=== PATIENT | female | born 1985 | race Caucasian/White ===

== ENCOUNTER 2016-10-19 12:05 | Emergency (ER) | payer MEDICAID ==
[~2016-10-19] VITALS: Wt 78.1 kg
--- NOTE | 2016-10-19 12:48 | ERD ---
ER Documentation Chief Complaint Date/Time DATE: 10/19/16 TIME: 12:44 Chief Complaint left knee pain from about 1 month ago. needs mri today. no recent injury HPI This is a 29-year-old female presents to the ER with left knee pain that has been going on for the last month. Patient was doing jumping jacks when she hurt her knee. Patient has been to different ERs and has gone x-ray and CT scan. Patient is requesting an MRI today. Patient states that pain is controlled with pain medication she has been given. Patient denies any new swelling or redness to the area. She denies any numbness or tingling of her extremity. ROS 12 point review of systems was done, all negative except per HPI. Allergies Allergies: Coded Allergies: propoxyphene (Verified Allergy, Intermediate, SOB, RASH, 10/19/16) PMhx/Soc Medical and Surgical Hx: pt denies Medical Hx, pt denies Surgical Hx Hx Alcohol Use: No Hx Substance Use: No Hx Tobacco Use: No Smoking Status: Never smoker Physical Exam Vitals Vital Signs Date Time Temp Pulse Resp B/P Pulse Ox O2 Delivery O2 Flow Rate FiO2 10/19/16 12:09 98.5 98 20 138/88 100 Physical Exam GENERAL: The patient is well developed and appropriate for usual state of health , in no apparent distress. HEENT: Atraumatic. Conjunctivae are pink. Pupils equal, round, and reactive to light. Extraocular muscles are grossly intact. Bilateral tympanic membranes are clear with no evidence of erythema, effusion or dulling of the light reflex. The oropharynx is clear with no erythema or exudates. NECK: C-spine is soft and supple. There is no cervical lymphadenopathy. CHEST: Clear to auscultation bilaterally. There are no rales, wheezes or rhonchi. HEART: Regular rate and rhythm. No murmurs, clicks, rubs or gallops. ABDOMEN: Soft, nontender and nondistended. Good bowel sounds. No rebound or guarding. No gross peritonitis. No gross organomegaly or masses. No Jacome sign or McBurney point tenderness. BACK: No midline or flank tenderness. EXTREMITIES: Left knee: Painful extension and flexion of knee. unable to perform special exams 2/2 pain. no femur pain, no calf pain. NEURO: Alert and oriented. Procedures/MDM This is a 30-year-old female that presents to the ER with left knee pain. Patient may have a meniscus or ligament injury. At this time patient is stable for outpatient follow-up and outpatient MRI. Patient is neurovascularly intact. She is afebrile well-appearing without osteomyelitis, rhabdomyolysis, or compartment syndrome. Patient was given a knee immobilizer she is neurovascularly intact before and after splint application. She already has pain medication at home and does not want any more pain medication. Patient is to follow-up with her primary care doctor or return to ER sooner if symptoms worsen. I gave patient a list of community clinics and an orthopedic referral. Patient understands and agrees with plan Departure Diagnosis: Primary Impression: Knee injury Condition: Stable Patient Instructions: Knee Pain, Meniscus Injury (Possible) Referrals: MOLLY HSU MD [facility] YOU HAVE RECEIVED A MEDICAL SCREENING EXAM AND THE RESULTS INDICATE THAT YOU DO NOT HAVE A CONDITION THAT REQUIRES URGENT TREATMENT IN THE EMERGENCY DEPARTMENT. FURTHER EVALUATION AND TREATMENT OF YOUR CONDITION CAN WAIT UNTIL YOU ARE SEEN IN YOUR DOCTORS OFFICE WITHIN THE NEXT 1-2 DAYS. IT IS YOUR RESPONSIBILITY TO MAKE AN APPOINTMENT FOR FOLOW-UP CARE. IF YOU HAVE A PRIMARY DOCTOR --you should call your primary doctor and schedule an appointment IF YOU DO NOT HAVE A PRIMARY DOCTOR YOU CAN CALL OUR PHYSICIAN REFERRAL HOTLINE AT IF YOU CAN NOT AFFORD TO SEE A PHYSICIAN YOU CAN CHOSE FROM THE FOLLOWING [facility] [address] [facility]. [facility] [address] [facility] [facility] [address] [facility] [facility] [address] [facility]. [facility] [address] [facility]. [facility]. [address] [facility] Hours: Mon-Fri 9:00 AM - 5:00 PM Additional Instructions: Call your primary care doctor TOMORROW for an appointment during the next 1-2 days.See the doctor sooner or return here if your condition worsens before your appointment time. VERONICA LUCIO Oct 19, 2016 12:48
== END 2016-10-19 12:52 | disposition home or self-care (01) ==
LOC: FTE 12:05
DX: S89.92XA Unspecified injury of left lower leg, initial encounter (principal); X50.9XXA Other and unspecified overexertion or strenuous movements or postures, initial encounter; Y92.9 Unspecified place or not applicable

== ENCOUNTER 2017-02-18 07:15 | Day surgery (SDC) | payer BC ==
--- NOTE | 2017-02-17 22:07 | PREOPHP ---
DATE OF ADMISSION: 02/18/2017 HISTORY OF PRESENT ILLNESS: This 31-year-old patient is going to be admitted for diagnostic arthros copy of left knee, partial medial and lateral meniscectomy, possibly repair, plica release, synovect ricardo, application of Joe dressing. This patient has been experiencing knee pain for quite a while. Conservative treatment resulted in limited benefit to the patient. The patient has requested surgical intervention. SOCIAL HISTORY: Nonsmoker, nondrinker. FAMILY HISTORY: Negative. ALLERGIES: DARVOCET. MEDICATIONS: 1. Sulindac. 2. Folic acid. 3. D3. For postop: 1. Ultram. 2. Ibuprofen. 3. Bactrim-DS. REVIEW OF SYSTEMS: Limited to present illness. PHYSICAL EXAMINATION: SKIN: Within normal limits. EARS, NOSE, THROAT: PERRLA. HEAD AND NECK: Normocephalic. Trachea midline. Bilateral symmetrical carotid pulses. No mass, no bruit, no lymphadenopathy. CARDIOVASCULAR: Normal sinus rhythm. S1, S2 normal. No murmur. No JVD. No peripheral edema. LUNGS: Clear. ABDOMEN: Protuberant. No organomegaly. No mass. Bowel sounds present. GENITOURINARY AND RECTAL: Not pertinent to this admission. MUSCULOSKELETAL: Height 4 feet 11 inches, weighing 174 pounds. Head and neck unremarkable. Upper extremities normal with normal neurovascular examination. Spine clear. Right knee shows ____ a few degrees of recurvatum to ____ 25 degrees. Left knee range of motion 0 to 85 degrees. No muscle at rophy. There is tenderness over the patellar tendon. There is tenderness over the medial and later al patellofemoral joint line. There is moderate amount of tenderness over the patellofemoral joint line with positive Isabell test. Vascular examination seems to be intact. MRI report of left knee indicates soft-tissue swelling, tendinitis, torn medial meniscus. DIAGNOSES: 1. Left knee recurvatum. 2. Left knee synovitis. 3. Plica syndrome. 4. Torn meniscus. Treatment plan, alternatives, risks and benefits discussed. The patient understands possibility of complications from surgery such as infection, bleeding, nerve damage, vascular damage, possibility o f deep venous thrombosis, pulmonary embolism, hypersensitivity and even . [place] result may not be obtained depending on actual finding or known or unknown factor or factors. Formal H and P is supposed to be done by PCP of the patient. Dictated By: DONAVON PARRA/JAMES Conf#: [id number] DID#: [id number]
[2017-02-18] VITALS (11 sets, daily range): BP systolic 100–134; BP diastolic 48–89; PULSE 70–92; RESP 10–19; Ht 147.3 cm; Wt 82.4 kg
[~2017-02-18] VITALS: Ht 147.3 cm; Wt 82.4 kg
[~2017-02-18 07:15] MED LIST: CEFAZOLIN 1 GM/50 ML (PMX) 50 ML IVPB ONE
[2017-02-18] MEDS ORDERED: MIDAZOLAM 1 MG/ML 2 ML INJ ONE (08:02)
[2017-02-18] MEDS ORDERED: PROPOFOL 20 ML ONE (08:02)
[2017-02-18] MEDS ORDERED: CEFAZOLIN 1 GM INJ ONE (08:02)
[2017-02-18] MEDS ORDERED: FENTAnyl 50 MCG/ML VIAL ONE (08:02)
[2017-02-18] MEDS ORDERED: CHOL100062 PO (08:40)
[2017-02-18] MEDS ORDERED: IBUP-1542 PO (08:40)
[2017-02-18] MEDS ORDERED: FOLI-49 PO (09:05)
[2017-02-18] MEDS ORDERED: TRAM-40 PO (09:05)
[2017-02-18] MEDS ORDERED: EPINEPHrine 1 MG/ML 30 ML INJ ONE (09:18)
[2017-02-18] MEDS ORDERED: morphine SULFATE/PF (10 MG/10 ML) INJ ONE (09:23)
[2017-02-18] MEDS ORDERED: SODIUM CL BACTERIOSTATIC 30 ML INJ ONE (09:23)
[2017-02-18] MEDS ORDERED: EPINEPHrine 1 MG/ML 30 ML INJ IRR ONE (10:02)
[2017-02-18] MEDS ORDERED: METOCLOPRAMIDE 10 MG INJ ONE (10:14)
[2017-02-18] MEDS ORDERED: DEXAMETHASONE 4 MG/ML 1 ML INJ ONE (10:14)
[2017-02-18] MEDS ORDERED: ONDANSETRON 4 MG INJ ONE (10:14)
[2017-02-18] MEDS ORDERED: KETOROLAC 30 MG INJ ONE (10:14)
[2017-02-18] MEDS ORDERED: morphine SULFATE/PF (10 MG/10 ML) INJ INJ ONE (10:23)
[2017-02-18] MEDS ORDERED: ONDANSETRON 4 MG INJ IV PRN (10:30)
[2017-02-18] MEDS ORDERED: morphine (1 MG/ML) 10ML SYRINGE IV PRN ×3 (10:30)
[2017-02-18] MEDS ORDERED: OXYCODONE/ACETAMINOPHEN (5/325) TAB PO PRN ×2 (10:30)
[2017-02-18] MEDS ORDERED: EPHEDrine SULFATE 50 MG/5 ML SYG IV PRN (10:30)
[2017-02-18] MEDS ORDERED: HYDROmorphONE (0.2 MG/ML) 10ML SYG IV PRN ×3 (10:30)
[2017-02-18] MEDS ORDERED: LABETALOL HCL 20MG INJ IV PRN (10:30)
[2017-02-18] MEDS ORDERED: MEPERIDINE 25 MG INJ IV PRN (10:30)
[2017-02-18] MEDS ORDERED: DIPHENHYDRAMINE 50 MG INJ IV PRN (10:30)
[2017-02-18] MEDS ORDERED: METOCLOPRAMIDE 10 MG INJ IV PRN (10:30)
--- NOTE | 2017-02-18 10:48 | OPR ---
Date/Time of Note Date/Time of Note DATE: 02/18/17 TIME: 10:42 Operative Report Preoperative Diagnosis torn meniscus , plica syndrom +/- synovitis Postoperative Diagnosis torn lateral meniscus .plica syndrom left knee Operation/Procedure Performed Diagnostic scope Partial lateral menisctomy, plica band release and zayas dressing Surgeon: DONAVON RODAS MD Anesthesia: general Estimated Blood Loss: minimal Specimens none Grafts/Implants none Complications: None DONAVON RODAS MD Feb 18, 2017 10:48
[2017-02-18] MEDS ORDERED: HYDROCODONE/APAP (5/325) TAB PO PRN ×2 (11:00)
--- NOTE | 2017-02-18 13:17 | OPR ---
DATE OF OPERATION: PREOPERATIVE DIAGNOSIS: Torn meniscus, plica syndrome, left knee. POSTOPERATIVE DIAGNOSIS: Torn meniscus, plica syndrome, left knee. OPERATION PERFORMED: Diagnostic arthroscopy, partial lateral meniscectomy and plica band release, a pplication of Joe dressing. ANESTHESIA: General. BLEEDING: Minimal. COMPLICATIONS: None. DESCRIPTION OF PROCEDURE: Patient was transferred to the operating room and placed on the table in supine position and Ancef was given IV. General anesthesia was induced. Left knee was prepped and draped in the routine fashion. Landmarks were marked through 2 anterior portals medial and lateral patellar tendon. Operative arthroscopy was commenced. Examination of suprapatellar pouch indicated medial plica band and suprapatellar pouch looked normal. The medial and lateral gutter was clear o f loose body and there was no plica band in that section. There was absence of loose body in medial and lateral gutter. Patella was engaging at 40 degrees in a very shallow trochlear groove and john cular surface was actually pretty good with minimal fibrillation. Going to medial compartment, the articular surface was good. Meniscus was intact. ACL was intact. Lateral meniscus shows a flap te ar of the root of the lateral meniscus and the remainder of the meniscus was intact. Articular surf bebeto was good. Partial minimal lateral meniscectomy was done to stable margins. Going to suprapatel lar pouch, the plica band was reduced. The knee was evacuated from debris with copious amounts of s jonny irrigation. Portal was closed with benzoin and Steri-Strips. Then, 5 mg of Duramorph mixed w ith 10 mL of injectable saline was injected into the knee. Sterile Joe dressing was applied. Pro cedure was terminated. General anesthesia was stopped. Patient was taken to recovery room in good and stable condition. Dictated By: DONAVON PARRA/JAMES Conf#: [id number] DID#: [id number]
== END 2017-02-18 12:36 | disposition home or self-care (01) ==
LOC: SDS 07:15
PROVIDERS: ATTEND Internal Medicine Endocrinology, Diabetes & Metabolism
DX: M23.201 Derangement of unspecified lateral meniscus due to old tear or injury, left knee (principal); M67.52 Plica syndrome, left knee
CPT/HCPCS: 29881; C1713; J0171; J0690; J1100; J1170; J1885; J2250; J2274; J2405; J2765; J3010; Z7512; Z7610